=== PATIENT | female | born 1985 | race Caucasian/White ===

== ENCOUNTER 2016-08-21 18:29 | Emergency (ER) | payer MEDICAID ==
[2016-08-21] MEDS ORDERED: METOCLOPRAMIDE HCL 5 MG/ML 2ML VIAL ONE (20:20)
[2016-08-21] MEDS ORDERED: KETOROLAC TROMETHAMINE 30 MG/ML 1 ML VIAL ONE (20:20)
== END 2016-08-21 21:13 | disposition home or self-care (01) ==
LOC: ED 18:29
DX: G43.909 Migraine, unspecified, not intractable, without status migrainosus (principal)
CPT/HCPCS: 99282; 96372 ×2; 99283; J2765; J1885